=== PATIENT | male | born 1970 | race Two or more races ===

== ENCOUNTER → 2024-06-05 | Outpatient (BNVA) | payer MEDICAID, SELFPAY | END | disposition home or self-care (01) | PROVIDERS: PCP Nurse Practitioner Family; Referring Provider Nurse Practitioner Family; Visit Provider Nurse Practitioner Family | DX: Z71.2 Person consulting for explanation of examination or test findings (principal); E78.5 Hyperlipidemia, unspecified; E55.9 Vitamin D deficiency, unspecified; R73.03 Prediabetes | CPT/HCPCS: 99213 ==

== ENCOUNTER → 2024-07-08 | Outpatient (CLI) | payer MEDICAID, SELFPAY ==
--- NOTE | 2024-07-08 06:45 | EKG_ITS ---
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
[2024-07-08 07:36] VITALS: BMI 37.0
[2024-07-08 09:21] LABS: Collection Type, Urine Clean Catch
[2024-07-08 10:20] LABS: Basophils # (Auto) 0.1 Thou/mm3 (0.0-0.2); Basophils % (Auto) 1 % (0-2.5); Eosinophils # (Auto) 0.3 Thou/mm3 (0.0-0.5); Eosinophils % (Auto) 4 % (0-10); Hematocrit 48.1 % (41.0-53.0); Immature Granulocytes % (Auto) 0 % (0-0); Immature Granulocytes Auto 0.01 Thou/mm3 (0.00-0.00); Lymphocytes # (Auto) 2.6 Thou/mm3 (1.0-4.8); Lymphocytes % (Auto) 34 % (10-50); Mean Corpuscular HGB Conc 33.3 g/dl (31.0-37.0); Mean Corpuscular Hemoglobin 30.7 pg (25.0-35.0); Mean Corpuscular Volume 92 fL (80-100); Monocytes # (Auto) 0.6 Thou/mm3 (0.0-0.8); Monocytes % (Auto) 8 % (0-12); Neutrophils # (Auto) 4.1 Thou/mm3 (1.8-7.7); Neutrophils % (Auto) 53 % (37-80); Nucleated Red Blood Cell % 0 /100 WBC (0); Platelet Count 214 Thou/mm3 (140-440); RDW Standard Deviation 41.2 fL (35.1-43.9); Red Blood Count 5.22 Miln/mm3 (4.50-5.90); White Blood Count 7.7 Thou/mm3 (3.8-10.6)
[2024-07-08 10:22] LABS: Anion Gap 7 (7-16); BUN/Creatinine Ratio 9 Ratio (12-20); Blood Urea Nitrogen 9 mg/dL (9-23); Calcium 9.2 mg/dL (8.3-10.6); Carbon Dioxide 27.3 mMol/L (20.0-31.0); Chloride 107 mMol/L (98-107); Estimated Creatinine Clearance 95.4 mL/min (>60); Glucose 90 mg/dL (74-106); Osmolality,Calculated 279 (275-295); Potassium 4.1 mMol/L (3.4-5.1); Sodium 141 mMol/L (136-145); eGFR > 60 See Note
[2024-07-08 10:26] LABS: Bilirubin,Urine Negative (Negative); Blood,Urine Negative (Negative); Clarity,Urine Clear (Clear/Hazy); Color,Urine Yellow (Lt Yel-Yel); Glucose, Urine Negative (Negative); Ketones,Urine Negative (Negative); Leukocyte Esterase,Urine Negative (Negative); Nitrite,Urine Negative (Negative); PH,Urine 7.5 (5.0-7.0); Protein,Urine Negative (Neg - Trace); RBC,Urine 3 /hpf (0-3); Specific Gravity,Urine 1.025 (1.001-1.035); Squamous Epithelial Cell,Urine < 1 /hpf (0-5); WBC,Urine < 1 /hpf (0-5)
== END | disposition home or self-care (01) ==
LOC: SLAB 07-16 08:24
PROVIDERS: PCP Nurse Practitioner Family; Referring Provider Surgery; Visit Provider Surgery
DX: N43.3 Hydrocele, unspecified (principal)
CPT/HCPCS: 36415; 80048; 81001; 85025; 93005

== ENCOUNTER 2024-08-18 11:47 | Day surgery (SDC) | payer MEDICAID, SELFPAY ==
[2024-08-17 07:57] VITALS: BMI 38.3
[2024-08-17 08:15] LABS: Collection Type, Urine Clean Catch
[2024-08-17 09:24] LABS: Basophils # (Auto) 0.1 Thou/mm3 (0.0-0.2); Basophils % (Auto) 1 % (0-2.5); Eosinophils # (Auto) 0.3 Thou/mm3 (0.0-0.5); Eosinophils % (Auto) 3 % (0-10); Hemoglobin 16.3 g/dL (13.5-16.0); Immature Granulocytes % (Auto) 0 % (0-0); Immature Granulocytes Auto 0.03 Thou/mm3 (0.00-0.00); Lymphocytes # (Auto) 2.3 Thou/mm3 (1.0-4.8); Lymphocytes % (Auto) 29 % (10-50); Mean Corpuscular Hemoglobin 31.6 pg (25.0-35.0); Mean Corpuscular Volume 93 fL (80-100); Monocytes # (Auto) 0.6 Thou/mm3 (0.0-0.8); Monocytes % (Auto) 8 % (0-12); Neutrophils # (Auto) 4.6 Thou/mm3 (1.8-7.7); Neutrophils % (Auto) 59 % (37-80); Nucleated Red Blood Cell % 0 /100 WBC (0); Platelet Count 208 Thou/mm3 (140-440); RDW Standard Deviation 42.2 fL (35.1-43.9); Red Blood Count 5.16 Miln/mm3 (4.50-5.90); White Blood Count 7.8 Thou/mm3 (3.8-10.6)
[2024-08-17 09:37] LABS: Alanine Aminotransferase 38 U/L (10-49); Albumin, Serum 4.3 gm/dL (3.5-5.0); Albumin/Globulin Ratio 1.7 (1.2-2.2); Alkaline Phosphatase 86 U/L (46-116); Anion Gap 7 (7-16); Aspartate Amino Transferase 26 U/L (0-34); BUN/Creatinine Ratio 7 Ratio (12-20); Bilirubin,Total 0.5 mg/dL (0.3-1.2); Blood Urea Nitrogen 6 mg/dL (9-23); Calcium 8.8 mg/dL (8.3-10.6); Calcium (Corrected) 8.8 mg/dL (8.5-10.1); Chloride 106 mMol/L (98-107); Creatinine (Component) 0.9 mg/dL (0.6-1.3); Estimated Creatinine Clearance 104.4 mL/min (>60); Globulin 2.6 gm/dL (2.3-3.5); Glucose 90 mg/dL (74-106); Osmolality,Calculated 280 (275-295); Potassium 4.2 mMol/L (3.4-5.1); Sodium 142 mMol/L (136-145); Total Protein 6.9 gm/dL (5.7-8.2); eGFR > 60 See Note
[2024-08-17 10:08] LABS: Amorphous Crystals,Urine Present (Absent); Bilirubin,Urine Negative (Negative); Blood,Urine Negative (Negative); Clarity,Urine Clear (Clear/Hazy); Color,Urine Yellow (Lt Yel-Yel); Glucose, Urine Negative (Negative); Ketones,Urine Negative (Negative); Leukocyte Esterase,Urine Negative (Negative); Nitrite,Urine Negative (Negative); PH,Urine 6.5 (5.0-7.0); Protein,Urine Negative (Neg - Trace); RBC,Urine 11 /hpf (0-3); Specific Gravity,Urine 1.022 (1.001-1.035); Squamous Epithelial Cell,Urine < 1 /hpf (0-5); WBC,Urine 1 /hpf (0-5)
--- NOTE | 2024-08-17 11:40 | ESHP_ITS ---
RE: CATE APONTE : 1970 DATE OF ADMISSION: 08/17/2024 HISTORY OF PRESENT ILLNESS: This 54-year-old gentleman, Chinese-speaking with a swollen right scrotum for seven months. He is urinating well. Nocturia is none. Previous surgery is none. He has five children. Allergies none known. No history of diabetes mellitus. No history of hypertension. He takes Crestor and aspirin. PHYSICAL EXAMINATION: HEENT: Normal. NECK: Supple. LUNGS: Clear. CARDIOVASCULAR: Heart sounds are normal. ABDOMEN: Soft. GENITOURINARY: Phallus is normal. Testes are down in the scrotum. There is a large 6 to 7 inches size right scrotal hydrocele. Left testis is normal. IMPRESSION: Right large scrotal hydrocele. PLAN: Right hydrocelectomy. Plan for procedure, risks and complications have been discussed with the patient. The patient has understood and agreed to proceed. DT: 10:48:28 TT: 11:39:00 Ref: [id number] - TID: [id number]
--- NOTE | 2024-08-17 14:18 | SUR.PREOP ---
Pt notified to come in tomorrow at 1200 for surgery.
[2024-08-18] VITALS (8 sets, daily range): BP systolic 113–146; BP diastolic 73–89; PULSE 62–76; RESP 12–21; TEMP 36.3–37; O2SAT 92–99; BMI 36.5
--- NOTE | 2024-08-18 13:45 | SUR.PHASEI ---
pt arrived to PACU via gurney drowsy but arouses to voice, breathing unlabored, dressing to scrotum clean, dry, and intact with scrotal support in place, report from Ovi RODRIGUEZ, Anaya RODRIGUEZ, Silvana SAUCEDO, and Lalit GUILLEN
[2024-08-18] MEDS: HYDROmorphone INJ 2 MG/ML VIAL 0.5 MG IV (14:01)
--- NOTE | 2024-08-18 14:10 | SUR.PHASEI ---
pt tolerating oral fluids without difficulty swallowing or n/v
--- NOTE | 2024-08-18 15:00 | SUR.PHASEII ---
pt awake, alert, able to follow commands, breathing unlabored, dressing to scrotum clean, dry, and intact with scrotal support in place, discharge instructions given with daughter present using telephone supervisor cigarette making department Jessica ID#[id number], pt able to dress self and ambulate to wheelchair with steady gait to wheelchair, pt discharged via wheelchair with all belongings and copies of discharge paperwork.
--- NOTE | 2024-08-18 20:44 | ESOP_ITS ---
RE: CATE APONTE : 1970 DATE OF OPERATION: 08/18/2024 PREOPERATIVE DIAGNOSIS: Large right scrotal hydrocele. POSTOPERATIVE DIAGNOSIS: Large right scrotal hydrocele. PROCEDURE PERFORMED: Right scrotal hydrocelectomy with excision and fulguration of the appendix of the right testis. ANESTHESIA: General. INDICATION: The patient is a 54-year-old gentleman who was referred to ma with a history of a large right scrotal hydrocele, which is 5 to 6 inches in size. He was now scheduled to have right hydrocelectomy. The patient has been having a lot of discomfort with this hydrocele and he wishes to have this corrected. Planned procedure, risks, and complications have been discussed with the patient. The patient understood them and agreed to proceed. DESCRIPTION OF PROCEDURE: After the patient was brought to the operating table under adequate general anesthesia and supine position, parts were prepped and draped in the usual fashion. Right scrotal vertical incision was then made approximately 6 cm long. Skin and subcutaneous tissues were incised. The hydrocele sac was dissected from all surrounding structures and the hydrocele sac was opened. It was containing a large amount of clear yellow fluid, which was removed. The hydrocele sac was partially excised and was everted behind the spermatic cord structures. Complete hemostasis was obtained. There was a prominent appendix of the right testis, which was excised and fulgurated. The skin wound was closed in two layers using 3-0 chromic catgut suture. Local anesthetic was injected at the site of the skin. Sterile dressing was then applied. The patient was then transferred to the recovery room in satisfactory condition having tolerated the entire procedure well. Sponge count and needle count at the end of the procedure was found to be correct. Estimated blood loss was approximately 5 mL. DT: 14:00:13 TT: 20:42:00 Ref: [id number] - TID: [id number]
== END 2024-08-18 15:00 | disposition home or self-care (01) ==
PROVIDERS: Anesthesiology; PCP Nurse Practitioner Family; Referring Provider Surgery; Visit Provider Surgery
PROC: (CPT 55040; principal; 2024-08-18 14:00)
DX: N43.3 Hydrocele, unspecified (principal); N44.8 Other noninflammatory disorders of the testis
CPT/HCPCS: 55040; 54512; 36415; 80053; 81001; 85025; A4217; A4649; J0131; J0694; J1100; J1171; J2371; J2405; J2704; J3010; J3490; L8330; A9270; J0665; J1596

== ENCOUNTER → 2024-09-02 | Outpatient (BNVA) | payer MEDICAID, SELFPAY | END | disposition home or self-care (01) | PROVIDERS: PCP Nurse Practitioner Family; Referring Provider Nurse Practitioner Family; Visit Provider Nurse Practitioner Family | DX: Z12.11 Encounter for screening for malignant neoplasm of colon (principal); E78.5 Hyperlipidemia, unspecified; R73.03 Prediabetes; Z01.83 Encounter for blood typing; Z23 Encounter for immunization | CPT/HCPCS: 90471; 99214; G0009 ==

== ENCOUNTER → 2024-09-29 | Outpatient (BNVA) | payer MEDICAID, SELFPAY | END | disposition home or self-care (01) | PROVIDERS: PCP Nurse Practitioner Family; Referring Provider Nurse Practitioner Family; Visit Provider Nurse Practitioner Family | DX: Z00.01 Encounter for general adult medical examination with abnormal findings (principal); F17.210 Nicotine dependence, cigarettes, uncomplicated; N43.3 Hydrocele, unspecified; E66.9 Obesity, unspecified; Z68.30 Body mass index [BMI] 30.0-30.9, adult; Z11.3 Encounter for screening for infections with a predominantly sexual mode of transmission; E78.5 Hyperlipidemia, unspecified; E55.9 Vitamin D deficiency, unspecified; R91.1 Solitary pulmonary nodule; R73.03 Prediabetes; Z01.83 Encounter for blood typing; Z71.85 Encounter for immunization safety counseling; Z71.2 Person consulting for explanation of examination or test findings | CPT/HCPCS: 93005; 99215 ==

== ENCOUNTER → 2024-10-13 | Outpatient (BNVA) | payer MEDICAID, SELFPAY | END | disposition home or self-care (01) | PROVIDERS: PCP Nurse Practitioner Family; Referring Provider Nurse Practitioner Family; Visit Provider Nurse Practitioner Family | DX: Z71.2 Person consulting for explanation of examination or test findings (principal); N39.0 Urinary tract infection, site not specified; Z12.11 Encounter for screening for malignant neoplasm of colon | CPT/HCPCS: 99212; G0463 ==

== ENCOUNTER → 2025-03-10 | Outpatient (BNVA) | payer MEDICAID, SELFPAY | END | disposition home or self-care (01) | PROVIDERS: PCP Nurse Practitioner Family; Referring Provider Nurse Practitioner Family; Visit Provider Nurse Practitioner Family | DX: R73.03 Prediabetes (principal); Z71.2 Person consulting for explanation of examination or test findings; E55.9 Vitamin D deficiency, unspecified; R94.5 Abnormal results of liver function studies; E78.5 Hyperlipidemia, unspecified | CPT/HCPCS: 99212; G0463 ==